=== PATIENT | male | born 1960 | race Caucasian/White ===

== ENCOUNTER 2016-10-04 02:59 | Observation (INO) | payer MEDICARE, OTHER ==
[2016-10-04] VITALS (13 sets, daily range): BP systolic 101–138; BP diastolic 66–82; PULSE 39–61; RESP 14–18; TEMP 97.5–97.8; O2SAT 93–100
[~2016-10-04] VITALS: Ht 170.2 cm; Wt 74.7 kg
[~2016-10-04 02:59] MED LIST: DEXT15TA PO; DIAZ10 PO; FENO50TA PO; LAMO150T PO; LEXA10TA PO; PREV30CA36 PO; SERO400T3 PO; SIMV40TA PO; TAMS0.4C67 PO
[2016-10-04] MEDS ORDERED: FENO134C PO (03:24)
[2016-10-04] MEDS ORDERED: CYCL1TAB29 PO (03:24)
[2016-10-04] MEDS ORDERED: PANT40TA3 PO (03:24)
[2016-10-04] MEDS ORDERED: ZOCO80TA PO (03:24)
[2016-10-04] MEDS ORDERED: LEVO50TA4 PO (03:24)
[2016-10-04] MEDS ORDERED: SODIUM CHLORIDE 0.9% FLUSH 10 ML FLUSH IVF PRN ×2 (03:45→05:30)
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
[2016-10-04 04:05] LABS: AUTOMATED NEUTROPHIL # 5.8 TH/MM3 (1.8-7.7); BASOPHIL # 0.2 TH/MM3 (0-0.2); BASOPHIL % 2.7 % (0.0-2.0); EOSINOPHIL # 0.1 TH/MM3 (0-0.4); EOSINOPHIL % 1.7 % (0.0-4.0); HEMATOCRIT 37.6 % (39.0-51.0); HEMO FLAGS DIFF FINAL; LYMPH % 19.8 % (9.0-44.0); LYMPHOCYTE # 1.6 TH/MM3 (1.0-4.8); MEAN CELL VOLUME 88.8 FL (80.0-100.0); MEAN CORPUSCULAR HEMOGLOBIN 29.1 PG (27.0-34.0); MEAN CORPUSCULAR HGB CONC 32.8 % (32.0-36.0); MONO % 6.2 % (0.0-8.0); NEUT % 69.6 % (16.0-70.0); PLATELET COUNT 262 TH/MM3 (150-450); RED BLOOD COUNT 4.24 MIL/MM3 (4.50-5.90); RED CELL DISTRIBUTION WIDTH 12.8 % (11.6-17.2); WHITE BLOOD COUNT 8.2 TH/MM3 (4.0-11.0)
--- NOTE | 2016-10-04 04:12 | RADRPT ---
EXAM DATE/TIME: 10/04/2016 03:52 [facility] COMPARISON: No previous studies available for comparison. INDICATIONS : Chest pain. MEDICAL HISTORY : Myocardial infarction. SURGICAL HISTORY : None. ENCOUNTER: Initial ACUITY: 1 day PAIN SCORE: 3/10 LOCATION: Bilateral chest FINDINGS: A single view of the chest demonstrates the lungs to be symmetrically aerated without evidence of mas s, infiltrate or effusion. The cardiomediastinal contours are unremarkable. Osseous structures are intact. CONCLUSION: The lungs are clear. Michael Mackay MD on October 04, 2016 at 4:10 Board Certified Radiologist. This report was verified electronically.
[2016-10-04 04:17] LABS: CHLORIDE 108 MEQ/L (98-107); SODIUM (NA) 144 MEQ/L (136-145)
[2016-10-04 04:20] LABS: ANION GAP 8 MEQ/L (5-15); BICARBONATE 27.7 MEQ/L (21.0-32.0); BLOOD UREA NITROGEN 26 MG/DL (7-18)
[2016-10-04 04:24] LABS: GLOMERULAR FILTRATION RATE 52 ML/MIN (>89)
[2016-10-04 04:27] LABS: CREATINE KINASE 144 U/L (39-308)
[2016-10-04] MEDS ORDERED: KETOROLAC TROMETHAMINE 30 MG/ML (IVP) VIAL IV PUSH ONE (04:30)
[2016-10-04] MEDS ORDERED: SODIUM CHLOR 0.9% 1000 ML INJ 1,000 ML IV ONE (04:30)
[2016-10-04 04:39] LABS: BLOOD, URINE NEG (NEG); GLUCOSE,URINE NEG (NEG); KETONE, URINE NEG (NEG); NITRITE,URINE NEG (NEG); PH, URINE 6.5 (5.0-8.5)
[2016-10-04 04:39] LABS: CKMB 2.4 NG/ML (0.5-3.6)
[2016-10-04 04:51] LABS: URINE COLOR STRAW (YELLW/STRAW)
[2016-10-04 04:55] LABS: COMMENT (UR) CULT NOT INDICATED; CULTURE IF INDICATED CULT NOT INDICATED; RBC, URINE 0-3 /hpf (0-3); SQUAMOUS EPITHELIAL CELL URINE 0-5 /hpf (0-5)
[2016-10-04 05:06] LABS: APTT (PATIENT) 25.4 SEC (24.3-30.1); PROTHROMBIN TIME - PATIENT 11.6 SEC (9.8-11.6)
[2016-10-04] MEDS ORDERED: MAGNESIUM HYDROXIDE SUSP 30 ML CUP PO PRN (05:30)
[2016-10-04] MEDS ORDERED: ONDANSETRON HCL 4 MG/2 ML VIAL IVP PRN (05:30)
[2016-10-04] MEDS ORDERED: LACTULOSE SYRUP 20 GM/30 ML CUP PO PRN (05:30)
[2016-10-04] MEDS ORDERED: SODIUM CHLORIDE 0.9% FLUSH 10 ML FLUSH IV FLUSH PRN (05:30)
[2016-10-04] MEDS ORDERED: ACETAMINOPHEN 325 MG TAB PO PRN ×2 (05:30)
[2016-10-04] MEDS ORDERED: SENNOSIDES 8.6 MG TAB PO PRN (05:30)
[2016-10-04] MEDS ORDERED: NALOXONE HCL 0.4 MG/ML AMP IV PRN (05:30)
[2016-10-04] MEDS ORDERED: HEPARIN SODIUM - SQ 10,000 UNITS/ML VIAL SQ SCH (05:30)
[2016-10-04] MEDS ORDERED: SODIUM CHLOR 0.9% 1000 ML INJ 1,000 ML IV SCH (05:30)
[2016-10-04 06:00] LABS: BARBITURATES, URINE NEG (NEG); COCAINE, URINE NEG (NEG)
[2016-10-04 06:01] LABS: AMPHETAMINE, URINE NEG (NEG)
[2016-10-04] MEDS ORDERED: FENT0.05 (06:07)
[2016-10-04] MEDS ORDERED: SODIUM CHLORIDE 0.9% FLUSH 10 ML FLUSH IV FLUSH SCH ×2 (09:00)
[2016-10-04] MEDS ORDERED: FENOFIBRATE 145 MG TAB PO SCH (10:45)
[2016-10-04] MEDS ORDERED: PANTOPRAZOLE SOD 40 MG DELAYED RELEASE TAB PO SCH (11:00)
[2016-10-04] MEDS ORDERED: PRAVASTATIN SOD 80 MG TAB PO SCH (11:00)
[2016-10-04] MEDS ORDERED: traMADol HCL 50 MG TAB PO PRN (11:30)
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
[2016-10-04] MEDS ORDERED: CYCLOBENZAPRINE HCL 10 MG TAB PO SCH (13:00)
--- NOTE | 2016-10-04 17:21 | EKG ---
Date Performed: 10/04/2016 Time Performed: 03:55:20 PTAGE: 56 years EKG: SINUS BRADYCARDIA BORDERLINE ECG PREVIOUS TRACING : 09/08/2010 21.59 Compared to prior tracing no significant change DOCTOR: Wild Hillaird Interpretating Date/Time 10/04/2016 17:19:42
--- NOTE | 2016-10-04 19:03 | MB ---
cc: SAV GAMBLE MD DATE OF CONSULTATION 10/04/16 I made a special care to the hospital to see Mr. Barajas in cardiology consultation. He had come in because of a lot of back pain. I went to the nursing station to look at telemetry and there was no tracing. Apparently, he was off telemetry and had walked off the floor and possibly out of the hospital. His whereabouts are completely unknown so we are unable to do a cardiology consultation. I discussed this with the staff. Sav Gamble MD ASG/ /2:12 PM /7:05 PM
[2016-10-05] MEDS ORDERED: LEVOTHYROXINE SODIUM 50 MCG TAB PO SCH (06:00)
== END 2016-10-04 14:21 | disposition left against medical advice (07) ==
LOC: PHED 02:59 → INTOOBSV 05:26 → PHEDA 05:26 → PH3B 08:51
PROVIDERS: ADMIT Family Medicine; ATTEND Family Medicine
DX: M54.5 Low back pain (principal); M54.2 Cervicalgia; G89.4 Chronic pain syndrome; R00.1 Bradycardia, unspecified; R07.9 Chest pain, unspecified; R53.1 Weakness; E83.52 Hypercalcemia; I25.2 Old myocardial infarction; E78.5 Hyperlipidemia, unspecified; E78.00 Pure hypercholesterolemia, unspecified; E03.9 Hypothyroidism, unspecified; K21.9 Gastro-esophageal reflux disease without esophagitis; F31.9 Bipolar disorder, unspecified; F41.8 Other specified anxiety disorders; M19.90 Unspecified osteoarthritis, unspecified site; Z87.891 Personal history of nicotine dependence; Z79.899 Other long term (current) drug therapy
CPT/HCPCS: 71010; 80048; 80307; 81001; 82550; 82552; 83735; 84443; 84484; 85025; 85610; 85730; 93005; 96361; 96374; 99291; G0378; J1644; J1885; J7030

== ENCOUNTER 2016-12-06 13:51 | Inpatient (IN) | payer MEDICARE ==
[~2016-12-06] VITALS: Ht 167.6 cm; Wt 68.5 kg
[~2016-12-06 13:51] MED LIST changes: +CYCL1TAB29 PO; -DEXT15TA PO; -DIAZ10 PO; +FENO134C PO; -FENO50TA PO; +FENT0.05; -LAMO150T PO; +LEVO50TA4 PO; -LEXA10TA PO; +PANT40TA3 PO; -PREV30CA36 PO; -SERO400T3 PO; -SIMV40TA PO; -TAMS0.4C67 PO; +ZOCO80TA PO
[2016-12-06] MEDS ORDERED: IOHEXOL 350 MG/ML 10 ML VIAL (for RAD DIAG) IVCONTRAST ONE (13:52)
[2016-12-06 13:57] VITALS: BP 155/75; PULSE 60; RESP 18; TEMP 98.8; O2SAT 98
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
[2016-12-06 14:45] LABS: AUTOMATED NEUTROPHIL # 2.9 TH/MM3 (1.8-7.7); BASOPHIL % 0.4 % (0.0-2.0); EOSINOPHIL # 0.1 TH/MM3 (0-0.4); EOSINOPHIL % 2.6 % (0.0-4.0); HEMATOCRIT 39.7 % (39.0-51.0); HEMO FLAGS DIFF FINAL; LYMPH % 21.8 % (9.0-44.0); MEAN CELL VOLUME 90.6 FL (80.0-100.0); MEAN CORPUSCULAR HEMOGLOBIN 28.8 PG (27.0-34.0); MEAN CORPUSCULAR HGB CONC 31.8 % (32.0-36.0); MONO % 9.5 % (0.0-8.0); NEUT % 65.7 % (16.0-70.0); PLATELET COUNT 454 TH/MM3 (150-450); RED BLOOD COUNT 4.38 MIL/MM3 (4.50-5.90); RED CELL DISTRIBUTION WIDTH 15.4 % (11.6-17.2); WHITE BLOOD COUNT 4.4 TH/MM3 (4.0-11.0)
[2016-12-06 15:02] LABS: ANION GAP 8 MEQ/L (5-15); AST (GOT) 33 U/L (15-37); BLOOD UREA NITROGEN 12 MG/DL (7-18); CHLORIDE 109 MEQ/L (98-107); GLOMERULAR FILTRATION RATE 76 ML/MIN (>89); POTASSIUM 4.2 MEQ/L (3.5-5.1); SODIUM (NA) 141 MEQ/L (136-145)
[2016-12-06 15:04] LABS: ALCOHOL LESS THAN 3 MG/DL (0-5)
[2016-12-06 15:05] LABS: ALKALINE PHOSPHATASE 72 U/L (45-117); ALT (GPT) 132 U/L (12-78); TOTAL BILIRUBIN ADULT 0.9 MG/DL (0.2-1.0)
[2016-12-06 15:12] LABS: ACETAMINOPHEN LESS THAN 2.0 MCG/ML (10.0-30.0)
[2016-12-06 16:00] VITALS: BP 128/70; PULSE 60; RESP 17; O2SAT 98
--- NOTE | 2016-12-06 16:26 | RADRPT ---
EXAM DATE/TIME: 12/06/2016 15:30 [facility] COMPARISON: No previous studies available for comparison. INDICATIONS : Attempted hanging. RADIATION DOSE: CTDIvol (mGy) ; Reconstructed from previous dataset, no dose MEDICAL HISTORY : Cardiovascular disease. SURGICAL HISTORY : None. ENCOUNTER: Initial ACUITY: 1 day PAIN SCALE: 0/10 LOCATION: neck TECHNIQUE: Volumetric scanning of the cervical spine was performed. Multiplanar reconstructions in the sagittal, coronal and oblique axial planes were performed. Using automated exposure control and adjustment o f the mA and/or kV according to patient size, radiation dose was kept as low as reasonably achievable to obtain optimal diagnostic quality images. DICOM format image data is available electronically f or review and comparison. FINDINGS: VERTEBRAE: There is an anterior fusion plate with intervening bone graft material involving C5-C6 and C6-C7. Randall tebral body heights are maintained. ALIGNMENT: No evidence of subluxation. Residual contrast from the CTA is present. C2-C3: The bony spinal canal is normal in size. No evidence of disc bulge or herniation. The neural forami na are bilaterally patent. C3-C4: The bony spinal canal is normal in size. No evidence of disc bulge or herniation. The neural forami na are bilaterally patent. C4-C5: There is a minimal central bulge. No abutment of the cord or central canal stenosis. Mild bony uncove rtebral hypertrophy generates mild right neural foraminal narrowing. The left is patent. C5-C6: This level is fused. Central canal is patent. Bony uncovertebral hypertrophy generates moderate right and mild left neural foraminal narrowing. C6-C7: This level is fused. The central canal is patent. Bony uncovertebral hypertrophy generates mild bilat eral neural foraminal narrowing. C7-T1: The bony spinal canal is normal in size. No evidence of disc bulge or herniation. The neural forami na are bilaterally patent. CONCLUSION: 1. Prior anterior fusion from C5-C7. 2. Mild degenerative changes. 3. No acute abnormality. Michael Monteiro Jr., MD on December 06, 2016 at 16:20 Board Certified Radiologist. This report was verified electronically.
--- NOTE | 2016-12-06 17:04 | RADRPT ---
EXAM DATE/TIME: 12/06/2016 15:30 [facility] COMPARISON: No previous studies available for comparison. INDICATIONS : Attempted hanging. IV CONTRAST: 70 cc Omnipaque 350 (iohexol) IV RADIATION DOSE: 16.0 CTDIvol (mGy) MEDICAL HISTORY : Cardiovascular disease. SURGICAL HISTORY : None. ENCOUNTER: Initial ACUITY: 1 day PAIN SCALE: 0/10 LOCATION: neck Elevated flow velocities and ICA/CCA ratios have been found to correlate with increased degrees of vessel stenosis, calculated as percentage of diameter relative to a normal segment of distal ICA/CCA. TECHNIQUE: Volumetric scanning was performed using a multirow detector CT scanner. The data was post processed with a variety of visualization algorithms including full-volume maximum intensity projection, multip lanar sliding thin-slab reformation, curved-planar reformation, and surface-rendering techniques. Us ing automated exposure control and adjustment of the mA and/or kV according to patient size, radiatio n dose was kept as low as reasonably achievable to obtain optimal diagnostic quality images. DICOM f ormat image data is available electronically for review and comparison. FINDINGS: AORTIC ARCH: There is a three-vessel origin of the great vessels from the aorta. No evidence of ostial narrowing. RIGHT CAROTID: The common carotid artery is intact. The carotid bulb has a normal configuration without ulceration o r narrowing. The internal carotid artery lumen is smooth without stenosis. The external carotid shane ry is intact. LEFT CAROTID: The common carotid artery is intact. The carotid bulb has a normal configuration without ulceration or narrowing. The internal carotid artery lumen is smooth without stenosis. The external carotid ar rishabh is intact. VERTEBRALS: Vertebral arteries are patent bilaterally, right side dominant. No evidence of disease or injury. CONCLUSION: Normal study Tony Lantigua MD on December 06, 2016 at 16:56 Board Certified Radiologist. This report was verified electronically.
[2016-12-06 18:00] VITALS: BP 138/80; PULSE 61; RESP 16; O2SAT 97
[2016-12-06] MEDS ORDERED: TYLETAB34 PO (20:25)
[2016-12-06] MEDS ORDERED: ALUMINUM/MAGNESIUM/SIMETH 30 ML CUP PO PRN (21:00)
[2016-12-06] MEDS ORDERED: LORazepam 2 MG TAB PO PRN (21:00)
[2016-12-06] MEDS ORDERED: LORazepam 2 MG/ML VIAL IV PUSH PRN ×4 (21:00)
[2016-12-06] MEDS ORDERED: BENZTROPINE MESYLATE 1 MG TAB PO PRN (21:00)
[2016-12-06] MEDS ORDERED: MAGNESIUM HYDROXIDE SUSP 30 ML CUP PO PRN (21:00)
[2016-12-06] MEDS ORDERED: BENZTROPINE MESYLATE 2 MG/2 ML VIAL IM PRN (21:00)
[2016-12-06] MEDS ORDERED: FLUMAZENIL 0.5 MG/5 ML VIAL IV PUSH PRN (21:00)
[2016-12-06] MEDS: LORazepam 1 MG TAB PO PRN (22:29)
[2016-12-06 23:40] VITALS: BP 131/86; PULSE 65; RESP 20; TEMP 98.2; O2SAT 100
[2016-12-07] MEDS: LEVOTHYROXINE SODIUM 50 MCG TAB PO SCH (05:51)
[2016-12-07] MEDS: hydrOXYzine HCL 50 MG TAB PO PRN ×2 (05:55→20:44)
[2016-12-07] MEDS: ACETAMINOPHEN 325 MG TAB PO PRN ×4 (05:55→21:52)
[2016-12-07] MEDS: PRAVASTATIN SOD 80 MG TAB PO SCH (08:48)
[2016-12-07] MEDS: PANTOPRAZOLE SOD 40 MG DELAYED RELEASE TAB PO SCH (08:48)
[2016-12-07] MEDS: REMOVE OLD PATCH T-DERMAL SCH (09:00)
[2016-12-07] MEDS: NICOTINE 21 MG/24 HR PATCH T-DERMAL SCH (09:00)
[2016-12-07 10:27] LABS: ANION GAP 10 MEQ/L (5-15); AST (GOT) 22 U/L (15-37); BLOOD UREA NITROGEN 16 MG/DL (7-18); CHLORIDE 106 MEQ/L (98-107); GLOMERULAR FILTRATION RATE 76 ML/MIN (>89); POTASSIUM 3.7 MEQ/L (3.5-5.1); SODIUM (NA) 141 MEQ/L (136-145)
[2016-12-07 10:28] LABS: ALT (GPT) 124 U/L (12-78)
[2016-12-07 10:30] LABS: AUTOMATED NEUTROPHIL # 4.2 TH/MM3 (1.8-7.7); BASOPHIL % 0.2 % (0.0-2.0); EOSINOPHIL # 0.1 TH/MM3 (0-0.4); EOSINOPHIL % 0.8 % (0.0-4.0); HEMATOCRIT 39.3 % (39.0-51.0); HEMO FLAGS DIFF FINAL; LYMPH % 26.2 % (9.0-44.0); LYMPHOCYTE # 1.8 TH/MM3 (1.0-4.8); MEAN CELL VOLUME 89.6 FL (80.0-100.0); MEAN CORPUSCULAR HEMOGLOBIN 29.6 PG (27.0-34.0); MONO % 9.8 % (0.0-8.0); PLATELET COUNT 480 TH/MM3 (150-450); RED BLOOD COUNT 4.38 MIL/MM3 (4.50-5.90); RED CELL DISTRIBUTION WIDTH 15.3 % (11.6-17.2); WHITE BLOOD COUNT 6.7 TH/MM3 (4.0-11.0)
[2016-12-07 10:37] LABS: ALKALINE PHOSPHATASE 77 U/L (45-117); HDL CHOLESTEROL 63.3 MG/DL (40.0-60.0); LDL CHOLESTEROL 69 MG/DL (0-99)
--- NOTE | 2016-12-07 10:57 | HHI.HP ---
Provisional Diagnosis Admission Date Dec 06, 2016 at 20:47 [place] I. 1. Bipolar affective disorder, presently depressed, severe without psychotic features Rule out contribution from substance use 2. Suspected polysubstance abuse [place] II. Deferred Certification of Person's Competence To Provide Express and Informed Consent I have personally examined Vicki Barajas , a person being served at [facility] on, Dec 07, 2016 10:57. Express and informed consent means consent voluntarily given in writing, by a competent person, after sufficient explanation and disclosure of the subject matter involved to enable the person to make a knowing and willful decision without any element of force, fraud, deceit, duress, or other form of constraint or coercion. This person is 18 years of age or older, is not now known to be incompetent to consent to treatment with a guardian advocate, and does not have a health care surrogate or proxy currently making medical treatment decisions. I have found this person to be one of the following: [] Competent to provide express and informed consent, as defined above, for voluntary admission to this facility and is competent to provide express and informed consent for treatment. He/she has the consistent capacity to make well reasoned, willful, and knowing decisions concerning his or her medical or mental health treatment. The person fully and consistently understands the purpose of the admission for examination/placement and is fully capable of personally exercising all rights assured [place] [] Incompetent to provide express and informed consent to voluntary admission, and this is incompetent to provide express and informed consent to treatment. The person must be transferred to involuntary status and a petition for a guardian advocate filed with the Circuit Court. [x] Refusing to provide express and informed consent to voluntary admission but is competent to provide express and informed consent for treatment. The person must be discharged or transferred to involuntary status. Form shall be completed within 24 hours of a person's arrival at the receiving facility and filed in the clinical record of each person: 1. Admitted on a voluntary basis 2. Permitted to provide express and informed consent to his/her own treatment 3. Allowed to transfer from involuntary to voluntary status 4. Prior to permitting a person to consent to his or her own treatment after having been previously found incompetent to consent to treatment. History of Present Illness Capacity: Has Capacity (to consent for medications at this time.) HPI Mr. Barajas is a 56-year-old male with a chart history of bipolar disorder who presents under a [place] act after an attempted hanging. Per the ED provider's note, the patient was found hanging by EMS with foam coming from his mouth. Urine toxicology suggests use of multiple substances including opiates, amphetamines, benzos and cannabinoids. Reviewing the electronic medical record , I note that the patient was admitted most recently here under Dr. Andrade in 2005 , at which time he was apparently on Seroquel. Patient seen and examined with nurse. Chart reviewed. Case discussed with nursing staff. On my examination today, the patient presents as extremely irritable and dysphoric. He says that he tried to hang himself because he and his weren't getting along. When I ask about ongoing SI, the patient tells me that he has been experiencing chronic back pain for 7 years, and he does admit to ongoing SI, although he denies desire to hurt himself on the inpatient psychiatric unit. He denies homicidal ideation. He denies audiovisual hallucinations. No delusions elicited. Sleep is fair but appetite is poor. Focus and concentration are poor. He seems quite fatigued. He tells me "I want out as soon as I can, and I am prepared to fight for that," by which he means he will retain an real estate attorney. I have discussed legal status and [place] [address] with him. He is fairly uncooperative historian generally. Past psychiatric history: Patient has a chart history of bipolar disorder. The patient declines to discuss his psychiatric history otherwise, although he does admit to a history of previous suicide attempt by trying to cut his wrists. Review of Systems ROS Limitations: Uncooperative, Poor Historian Except as stated in HPI: all other systems reviewed are Neg Past Psych History Psychological trauma history None reported Violence risk - others (6 mos) Indeterminate Violence risk - self (6 mos) Elevated risk. S/p serious SA. Substance Abuse History Drugs/Alcohol past 12 months Patient denies any abuse of drugs or alcohol although his urine toxicology is positive for substances as detailed above. Past Family Social History Coded Allergies: No Known Allergies (Unverified , 12/06/16) Past Medical History See electronic medical record Reported Medications Acetaminophen-Codeine (Tylenol-Codeine #3) 300-30 mg Tab, 1 TAB PO Q6HR Y for PAIN, TAB 0 Refills 12/06/16 Pantoprazole (Pantoprazole) 40 Mg Tab, 40 MG PO DAILY for Reflux, #30 TAB 0 Refills 10/04/16 Simvastatin (Zocor) 80 Mg Tab, 80 MG PO DAILY for Cholesterol Management, #30 TAB 0 Refills 10/04/16 Levothyroxine (Levothyroxine) 50 Mcg Tab, 50 MCG PO DAILY for Thyroid, #30 TAB 0 Refills 10/04/16 Discontinued Reported Medications Fentanyl Inj (Fentanyl Inj) 100 Mcg/2 Ml Amp, 50 MCG for Pain Management, AMPULE 0 Refills 10/04/16 Cyclobenzaprine (Flexeril) 10 Mg Tab, 10 MG PO TID for Muscle Spasm, #90 TAB 0 Refills 10/04/16 Fenofibrate Micronized (Fenofibrate Micronized) 134 Mg Cap, 134 MG PO DAILY, # 30 CAP 0 Refills 10/04/16 Current Medications Medications (Trade) Dose Ordered Sig/Elana Route Start Time Stop Time Status Last Admin (Benadryl) 50 mg HS PRN PO 12/06/16 21:00 (Tylenol) 650 mg Q4H PRN PO 12/06/16 21:00 12/07/16 08:51 (Milk Of Magnesia Liq) 30 ml DAILY PRN PO 12/06/16 21:00 (Mag-Al Plus Susp Liq) 30 ml Q6H PRN PO 12/06/16 21:00 (Habitrol 21 Mg Patch.24 Hr) 1 patch DAILY T-DERMAL 12/07/16 09:00 (Atarax) 50 mg Q6H PRN PO 12/06/16 21:00 12/07/16 05:55 (Cogentin) 1 mg Q12H PRN PO 12/06/16 21:00 (Cogentin Inj) 1 mg Q12H PRN IM 12/06/16 21:00 (Romazicon Inj) 0.2 mg Q1M PRN IV PUSH 12/06/16 21:00 (Ativan) 1 mg Q4H PRN PO 12/06/16 21:00 12/06/16 22:29 (Ativan Inj) 1 mg Q4H PRN IV PUSH 12/06/16 21:00 (Ativan) 2 mg Q2H PRN PO 12/06/16 21:00 (Ativan Inj) 2 mg Q2H PRN IV PUSH 12/06/16 21:00 (Ativan Inj) 2 mg Q1H PRN IV PUSH 12/06/16 21:00 (Ativan Inj) 2 mg Q15M PRN IV PUSH 12/06/16 21:00 Miscellaneous Information 1 DAILY T-DERMAL 12/07/16 09:00 (Synthroid) 50 mcg DAILY@0600 PO 12/07/16 06:00 12/07/16 05:51 (Protonix) 40 mg DAILY PO 12/07/16 09:00 12/07/16 08:48 (Pravachol) 80 mg DAILY PO 12/07/16 09:00 12/07/16 08:48 Family History Patient reports that his sister has bipolar disorder. Social History Patient has been 20 years. He has 3 adult children. He denies access to guns. He is high school educated. He is on disability. Denies any history. Denies any legal history. Endorses oriental orthodox/spiritual beliefs. Patient's Strengths (min. 2) In a monitored setting. Verbally fluent. Physical Exam Physical exam completed by ED provider. On my examination today, the patient appears to be in no acute physical distress. No motor abnormalities noted. No signs of GABAergic withdrawal appreciated. Labs and vitals reviewed: Vital Signs Vital Signs Date Time Temp Pulse Resp B/P (MAP) Pulse Ox O2 Delivery O2 Flow Rate FiO2 12/06/16 23:40 98.2 65 20 131/86 (101) 100 12/06/16 18:00 Room Air Lab Results Item Value Date Time White Blood Count 6.7 TH/MM3 # 12/07/16 0855 Hemoglobin 13.0 GM/DL 12/07/16 0855 Platelet Count 480 TH/MM3 H 12/07/16 0855 Sodium Level 141 MEQ/L 12/07/16 0855 Potassium Level 3.7 MEQ/L 12/07/16 0855 Chloride Level 106 MEQ/L 12/07/16 0855 Carbon Dioxide Level 25.0 MEQ/L 12/07/16 0855 Blood Urea Nitrogen 16 MG/DL 12/07/16 0855 Creatinine 1.02 MG/DL 12/07/16 0855 Aspartate Amino Transf (AST/SGOT) 22 U/L 12/07/16 0855 Alanine Aminotransferase (ALT/SGPT) 124 U/L H 12/07/16 0855 Alkaline Phosphatase 77 U/L 12/07/16 0855 Thyroid Stimulating Hormone 3rd Gen 0.276 uIU/ML L 12/07/16 0855 Urine Opiates Screen POS H 12/06/16 1455 Urine Amphetamines Screen POS H 12/06/16 1455 Urine Benzodiazepines Screen POS H 12/06/16 1455 Urine Cannabinoids Screen POS H 12/06/16 1455 Ethyl Alcohol Level LESS THAN 3 MG/DL 12/06/16 1415 Mental Status Examination Patient is in hospital gown. He is somewhat disheveled. He is awake and alert and oriented to person and hospital at least. No motor abnormalities noted. Speech is somewhat slow with increased speech latency. Language and fund of knowledge seem approximately average. Focus and concentration impaired. Memory seems at least fair on clinical exam. Mood is dysphoric and affect is restricted and irritable. Thought process slowed but linear. No loosening of associations. No delusions. Denies audiovisual hallucinations. Endorses ongoing suicidal ideation but denies plan. Denies homicidal ideation. Patient is presently unreliable to contract for safety. Insight and judgment are poor. Assessment & Plan Problem List: (1) Bipolar disorder ICD Codes: F31.9 - Bipolar disorder, unspecified Status: Acute (2) Polysubstance abuse ICD Codes: F19.10 - Other psychoactive substance abuse, uncomplicated Status: Chronic Assessment & Plan This is a 56-year-old male with psychiatric history as detailed above who presents under a [place] act following an attempted hanging. Patient presents to me as quite dysphoric and endorses ongoing suicidal ideation. I suspected bipolar depressive episode, although some component of drug induced mood disorder should also be kept in the differential. Patient requires psychiatric hospitalization at this time for safety, observation and stabilization. Admit inpatient. Patient is declining voluntary psychiatric hospitalization. Involuntary status. I have completed first opinion. Consult for second opinion. Patient retains capacity to consent for medications. Consult to the hospitalist for medical management including low TSH, chronic pain. Resume Seroquel 50 mg twice daily with plans to titrate to effect for mood. CIWA with Ativan for the management of any withdrawal. Seizure and fall precautions. Atarax as needed for anxiety, Cogentin as needed for EPS, Benadryl as needed for sleep. Vitals every shift. Counselor to see and obtain collateral. Disposition planning. Estimated length of stay: 7-9 days unless episode proves to be chiefly substance-induced. Discharge Planning Pending stabilization Request HC Surrog/Guard Advoc?: No Problem Qualifiers (1) Bipolar disorder: Qualified Codes: F31.4 - Bipolar disorder, current episode depressed, severe, without psychotic features Woody Lazo MD Dec 07, 2016 10:57
[2016-12-07 11:12] LABS: HEMOGLOBIN A1a 1.1 %; HEMOGLOBIN A1b 0.8 %; HEMOGLOBIN Ao 86.1 %; HEMOGLOBIN F 0.7 %; HEMOGLOBIN LA1C 1.9 %; HEMOGLOBIN P3 3.6 %
[2016-12-07 16:02] VITALS: BP 160/83; PULSE 69; RESP 18; TEMP 95.9; O2SAT 97
[2016-12-07] MEDS ORDERED: FENO134C PO (19:37)
[2016-12-07] MEDS ORDERED: GABA300C5 PO (19:39)
[2016-12-07] MEDS ORDERED: amphetamine salts PO (19:43)
[2016-12-07] MEDS ORDERED: SERO400T PO (19:44)
[2016-12-07] MEDS ORDERED: LAMO200T PO (19:45)
[2016-12-07] MEDS ORDERED: FENT0.05 IJ (19:48)
[2016-12-07] MEDS: QUEtiapine FUMARATE 25 MG TAB PO SCH (20:45)
[2016-12-07] MEDS: diphenhydrAMINE HCL 50 MG CAP PO PRN (21:53)
[2016-12-08] MEDS: LORazepam 1 MG TAB PO PRN (00:57)
[2016-12-08 05:45] VITALS: BP 139/94; PULSE 67; RESP 18; TEMP 98.6; O2SAT 99
[2016-12-08] MEDS: LEVOTHYROXINE SODIUM 50 MCG TAB PO SCH (06:00)
--- NOTE | 2016-12-08 08:23 | PD.PSY.CON ---
Provisional Diagnosis Admission Date Dec 06, 2016 at 20:47 [place] I. 1. Bipolar affective disorder, presently depressed, severe without psychotic features Rule out contribution from substance use 2. Suspected polysubstance abuse [place] II. Deferred History of Present Illness Service Psychiatry Consult Requested By Dr. lazo Reason for Consult Second opinion petition supporting [place] act Primary Care Physician Unknown HPI Mr. Barajas is a 56-year-old male with a chart history of bipolar disorder who presents under a [place] act after an attempted hanging. Per the ED provider's note, the patient was found hanging by EMS with foam coming from his mouth. Urine toxicology suggests use of multiple substances including opiates, amphetamines, benzos and cannabinoids. Reviewing the electronic medical record , I note that the patient was admitted most recently here under Dr. Andrade in 2005 , at which time he was apparently on Seroquel. Patient seen and examined with nurse. Chart reviewed. Case discussed with nursing staff. On my examination today, the patient presents as extremely irritable and dysphoric. He says that he tried to hang himself because he and his weren't getting along. When I ask about ongoing SI, the patient tells me that he has been experiencing chronic back pain for 7 years, and he does admit to ongoing SI, although he denies desire to hurt himself on the inpatient psychiatric unit. He denies homicidal ideation. He denies audiovisual hallucinations. No delusions elicited. Sleep is fair but appetite is poor. Focus and concentration are poor. He seems quite fatigued. He tells me "I want out as soon as I can, and I am prepared to fight for that," by which he means he will retain an corporate associate attorney. I have discussed legal status and [place] [address] with him. He is fairly uncooperative historian generally. Past psychiatric history: Patient has a chart history of bipolar disorder. The patient declines to discuss his psychiatric history otherwise, although he does admit to a history of previous suicide attempt by trying to cut his wrists. 11/28/16 Above note dictated by Dr. lazo reviewed and agreed with. Patient is 56- year-old white male admitted to his service. Patient seen by me with floor staff. Patient attempted hanging and suicide attempt. Is also significant chronic pain issues patient does still marked minimization of the suicide attempt states he also has the suicide with the past [address] aLzo insight first opinion petition supporting [place] act. I agree. Patient meets criteria for involuntary psychiatric hospitalization under the [place] act. Thus I will sign second opinion petition supporting [place] act Past Family Social History Coded Allergies: No Known Allergies (Unverified , 12/06/16) Reported Medications Fentanyl Inj (Fentanyl Inj) 100 Mcg/2 Ml Amp, 100 MCG IJ DAILY for Pain Management, AMPULE 0 Refills 12/07/16 Lamotrigine (Lamotrigine) 200 Mg Tab, 200 MG PO DAILY for Control Seizures, #30 TAB 0 Refills 12/07/16 Quetiapine (Seroquel) 400 Mg Tab, 400 MG PO HS, #30 TAB 0 Refills 12/07/16 [amphetamine salts] No Conflict Check, 15 MG PO BID 12/07/16 Gabapentin (Gabapentin) 300 Mg Cap, 300 MG PO TID, #90 CAP 0 Refills 12/07/16 Fenofibrate Micronized (Fenofibrate Micronized) 134 Mg Cap, 145 MG PO DAILY, # 30 CAP 0 Refills 12/07/16 Acetaminophen-Codeine (Tylenol-Codeine #3) 300-30 mg Tab, 1 TAB PO Q6HR Y for PAIN, TAB 0 Refills 12/06/16 Pantoprazole (Pantoprazole) 40 Mg Tab, 40 MG PO DAILY for Reflux, #30 TAB 0 Refills 10/04/16 Simvastatin (Zocor) 80 Mg Tab, 80 MG PO DAILY for Cholesterol Management, #30 TAB 0 Refills 10/04/16 Levothyroxine (Levothyroxine) 50 Mcg Tab, 50 MCG PO DAILY for Thyroid, #30 TAB 0 Refills 10/04/16 Discontinued Reported Medications Cyclobenzaprine (Flexeril) 10 Mg Tab, 10 MG PO TID for Muscle Spasm, #90 TAB 0 Refills 10/04/16 Current Medications Medications (Trade) Dose Ordered Sig/Elana Route Start Time Stop Time Status Last Admin (Benadryl) 50 mg HS PRN PO 12/06/16 21:00 12/07/16 21:53 (Tylenol) 650 mg Q4H PRN PO 12/06/16 21:00 12/07/16 21:52 (Milk Of Magnesia Liq) 30 ml DAILY PRN PO 12/06/16 21:00 (Mag-Al Plus Susp Liq) 30 ml Q6H PRN PO 12/06/16 21:00 (Habitrol 21 Mg Patch.24 Hr) 1 patch DAILY T-DERMAL 12/07/16 09:00 (Atarax) 50 mg Q6H PRN PO 12/06/16 21:00 12/07/16 20:44 (Cogentin) 1 mg Q12H PRN PO 12/06/16 21:00 (Cogentin Inj) 1 mg Q12H PRN IM 12/06/16 21:00 (Romazicon Inj) 0.2 mg Q1M PRN IV PUSH 12/06/16 21:00 (Ativan) 1 mg Q4H PRN PO 12/06/16 21:00 12/08/16 00:57 (Ativan Inj) 1 mg Q4H PRN IV PUSH 12/06/16 21:00 (Ativan) 2 mg Q2H PRN PO 12/06/16 21:00 (Ativan Inj) 2 mg Q2H PRN IV PUSH 12/06/16 21:00 (Ativan Inj) 2 mg Q1H PRN IV PUSH 12/06/16 21:00 (Ativan Inj) 2 mg Q15M PRN IV PUSH 12/06/16 21:00 Miscellaneous Information 1 DAILY T-DERMAL 12/07/16 09:00 (Synthroid) 50 mcg DAILY@0600 PO 12/07/16 06:00 12/08/16 06:00 (Protonix) 40 mg DAILY PO 12/07/16 09:00 12/07/16 08:48 (Pravachol) 80 mg DAILY PO 12/07/16 09:00 12/07/16 08:48 (SEROquel) 50 mg BID PO 12/07/16 21:00 12/07/16 20:45 Patient's Strengths (min. 2) In a monitored setting. Verbally fluent. Physical Exam Vital Signs Vital Signs Date Time Temp Pulse Resp B/P (MAP) Pulse Ox O2 Delivery O2 Flow Rate FiO2 12/08/16 05:45 98.6 67 18 139/94 (109) 99 12/06/16 18:00 Room Air Lab Results Test 12/07/16 08:55 White Blood Count 6.7 TH/MM3 Red Blood Count 4.38 MIL/MM3 Hemoglobin 13.0 GM/DL Hematocrit 39.3 % Mean Corpuscular Volume 89.6 FL Mean Corpuscular Hemoglobin 29.6 PG Mean Corpuscular Hemoglobin Concent 33.0 % Red Cell Distribution Width 15.3 % Platelet Count 480 TH/MM3 Mean Platelet Volume 8.3 FL Neutrophils (%) (Auto) 63.0 % Lymphocytes (%) (Auto) 26.2 % Monocytes (%) (Auto) 9.8 % Eosinophils (%) (Auto) 0.8 % Basophils (%) (Auto) 0.2 % Neutrophils # (Auto) 4.2 TH/MM3 Lymphocytes # (Auto) 1.8 TH/MM3 Monocytes # (Auto) 0.7 TH/MM3 Eosinophils # (Auto) 0.1 TH/MM3 Basophils # (Auto) 0.0 TH/MM3 CBC Comment DIFF FINAL Differential Comment Blood Urea Nitrogen 16 MG/DL Creatinine 1.02 MG/DL Random Glucose 96 MG/DL Total Protein 7.7 GM/DL Albumin 3.9 GM/DL Calcium Level 9.4 MG/DL Alkaline Phosphatase 77 U/L Aspartate Amino Transf (AST/SGOT) 22 U/L Alanine Aminotransferase (ALT/SGPT) 124 U/L Total Bilirubin 1.0 MG/DL Sodium Level 141 MEQ/L Potassium Level 3.7 MEQ/L Chloride Level 106 MEQ/L Carbon Dioxide Level 25.0 MEQ/L Anion Gap 10 MEQ/L Estimat Glomerular Filtration Rate 76 ML/MIN Hemoglobin A1c 5.3 % Triglycerides Level 88 MG/DL Cholesterol Level 150 MG/DL LDL Cholesterol 69 MG/DL HDL Cholesterol 63.3 MG/DL Cholesterol/HDL Ratio 2.36 RATIO Thyroid Stimulating Hormone 3rd Gen 0.276 uIU/ML Mental Status Examination Letter to thin slender somewhat disheveled white male calm cooperative somewhat guarded Appearance Somewhat disheveled Speech: Unremarkable Orientation: x3 Memory: Unremarkable Thought Process: Linear Thought Content: Unremarkable Language Fair Fund of Knowledge There Hallucination Type: None (denies) Attention and Concentration: Other (fair) Suicidal Ideation: Yes Previous Suicide Attempts: Yes Homicidal Ideation: No Previous Homicide Attempts: No Insight: Poor Judgment: Poor Affect: Other (decreased range and intensity) Mood: Sad, Other (restricted) Motor Activity: Normal gait Assessment & Plan Problem List: (1) Bipolar disorder ICD Codes: F31.9 - Bipolar disorder, unspecified Status: Acute (2) Polysubstance abuse ICD Codes: F19.10 - Other psychoactive substance abuse, uncomplicated Status: Chronic Assessment & Plan Estimated LOS: days Request HC Surrog/Guard Advoc?: No Problem Qualifiers (1) Bipolar disorder: Qualified Codes: F31.4 - Bipolar disorder, current episode depressed, severe, without psychotic features Tony Londono MD Dec 08, 2016 08:23
[2016-12-08] MEDS: QUEtiapine FUMARATE 25 MG TAB PO SCH (08:26)
[2016-12-08] MEDS: PRAVASTATIN SOD 80 MG TAB PO SCH (08:26)
[2016-12-08] MEDS: PANTOPRAZOLE SOD 40 MG DELAYED RELEASE TAB PO SCH (08:28)
[2016-12-08] MEDS: NICOTINE 21 MG/24 HR PATCH T-DERMAL SCH (08:29)
[2016-12-08] MEDS: REMOVE OLD PATCH T-DERMAL SCH (08:29)
--- NOTE | 2016-12-08 10:52 | HHI.PYPN ---
Subjective Remarks Patient seen and examined with nurse. Chart reviewed. E-FORCSE report reviewed. Extensive multisourcing noted. Case discussed with nursing staff. Per RN, patient incontinent of feces this morning. Patient tells me he has been having issues with fecal incontinence for several weeks. He is more conversant today and reiterates to me that he has been experiencing chronic back pain and difficulties with his , and this is why he tried to hang himself. He says he had been off his psychotropics for 3 weeks because "I didn' t think I would need them." We have obtained a med list, and I note patient had been on Lamictal and Seroquel. Mood "ashamed" of suicide attempt. Denies SI. Very discharge focused. Collateral obtained by counselor from patient's reviewed. No side effects. No other physical complaints. Review of Systems ROS Limitations: Poor Historian Except as stated in HPI: all other systems reviewed are Neg Objective Alert: Yes [place]: Person, Place, Date Mood: Other (Dysphoric) Affect: Restricted Memory Intact: Comment (fair) Hallucinations: Other (No AVH) Delusions: No Delusion Type: Other (No delusions) Suicidal: Ideation (Denies SI) Homicidal: Ideation (No HI) Insight/Judgment Poor Remarks No motor abnormalities noted. No signs of GABAergic withdrawal. Thought process linear. Grooming and hygiene poor. Speech somewhat slow with increased speech latency. Labs Labs reviewed. Vitals/IOs Vital Signs Date Time Temp Pulse Resp B/P (MAP) Pulse Ox O2 Delivery O2 Flow Rate FiO2 12/08/16 05:45 98.6 67 18 139/94 (109) 99 12/06/16 18:00 Room Air Assessment & Plan Problem List: (1) Bipolar disorder ICD Codes: F31.9 - Bipolar disorder, unspecified Status: Acute (2) Polysubstance abuse ICD Codes: F19.10 - Other psychoactive substance abuse, uncomplicated Status: Chronic Assessment & Plan E-FORCSE report raises red flag for significant substance use disorder, which would itself represent risk factor for ongoing self-harm. Home medication list included Seroquel 400mg qHS and Lamictal 200mg. Patient does not recall the Lamictal having been particularly helpful but would like to continue with Seroquel. I will adjust Seroquel somewhat lower than home dose given the period of medication nonadherence to avoid excessive sedation. Seroquel 50 mg daily and 200 mg at bedtime. Awaiting hospitalist input, and I have asked RN to apprise hospitalist of the fecal incontinence when hospitalist rounds. I have called the [facility] to ensure the consult went through, and it has. Continue to monitor on the inpatient unit. Continue other medications and care as ordered. Justification for Cont. Inpt. Monitoring for impairments in safety. High risk for decompensation and less restrictive environment. Discharge Planning Pending psychiatric stabilization Request HC Surrog/Guard Advoc?: No Problem Qualifiers (1) Bipolar disorder: Qualified Codes: F31.4 - Bipolar disorder, current episode depressed, severe, without psychotic features Woody Lazo MD Dec 08, 2016 10:52
[2016-12-08] MEDS: GABAPENTIN 300 MG CAP PO SCH ×2 (12:06→18:01)
[2016-12-08 16:31] VITALS: BP 148/94; PULSE 77; RESP 17; TEMP 98.9; O2SAT 98
--- NOTE | 2016-12-08 17:53 | HHI.PR ---
Objective Objective Results - Vital Signs Date Time Temp Pulse Resp B/P (MAP) Pulse Ox O2 Delivery O2 Flow Rate FiO2 12/08/16 16:31 98.9 77 17 148/94 (112) 98 12/08/16 05:45 98.6 67 18 139/94 (109) 99 Result Diagram: 12/07/16 0855 12/07/16 0855 Physical Exam Physical Exam pt is seen & examined d/w PT d/w Kacey see orders see consult thanks Nickolas Zendejas MD Dec 08, 2016 17:53
--- NOTE | 2016-12-08 18:01 | PD.CONS ---
HPI Service [facility] Hospitalists Consult Requested By Dr. Anderson Reason for Consult Medical management Primary Care Physician Unknown Diagnoses: History of Present Illness This is a 56-year-old white male with significant past medical history of chronic back and neck pain, previous cervical surgery, bipolar disorder, polysubstance abuse. Patient was brought in under a [place] act after an attempted hanging. Per ED and [place] act documentation, the patient was found hanging by EMS with foam coming from his mouth. Urine toxicology suggested multiple substances including opiates, amphetamines, benzos and cannabinoids. Patient has been admitted to the psychiatric unit, he is complaining of increasing pain and is very upset about his pain medications. He endorses recent C5 C6 C7 surgery in [place] with anterior approach, he thinks he may be 2 -3 months ago. He has a fentanyl pump that is almost empty and follows up with an outpatient pain management physician that he is not going to see anymore. Apparently the last narcotics he was taking was Tylenol 3. Prior to that he was on oxycodone. Dr Anderson conducted a search on [employer] and there is extensive multisourcing. Patient also had 2 episodes of incontinence of stool which indicates has happened in the past. Indicates he has occasional constipation because of the narcotics. He denies any bladder incontinence. No recent chest pain, shortness of breath, no fever, no chills. Laboratory workup is reviewed, he's noted with a depressed TSH. Cervical and neck CT are stable, no fracture. There is evidence of previous surgery. Hospitalist services are requested for medical management. Review of Systems Constitutional: DENIES: Diaphoretic episodes, Fatigue, Fever, Weight gain, Weight loss, Chills, Dizziness, Change in appetite, Night Sweats Endocrine: DENIES: Heat/cold intolerance, Polydipsia, Polyuria, Polyphagia Eyes: DENIES: Blurred vision, Diplopia, Eye inflammation, Eye pain, Vision loss , Photosensitivity, Double Vision Ears, nose, mouth, throat: DENIES: Tinnitus, Hearing loss, Vertigo, Nasal discharge, Oral lesions, Throat pain, Hoarseness, Ear Pain, Running Nose, Epistaxis, Sinus Pain, Toothache, Odynophagia Respiratory: DENIES: Apneas, Cough, Snoring, Wheezing, Hemoptysis, Sputum production, Shortness of breath Cardiovascular: DENIES: Chest pain, Palpitations, Syncope, Dyspnea on Exertion , PND, Lower Extremity Edema, Orthopnea, Claudication Gastrointestinal: COMPLAINS OF: Constipation, DENIES: Abdominal pain, Black stools, Bloody stools, Diarrhea, Nausea, Vomiting, Difficulty Swallowing, Anorexia Genitourinary: DENIES: Sexual dysfunction, Urinary frequency, Urinary incontinence, Urgency, Hematuria, Dysuria, Nocturia, Penile Discharge, Testicular Pain, Testicular Swelling Musculoskeletal: COMPLAINS OF: Back pain, Neck pain Integumentary: DENIES: Abnormal pigmentation, Nail changes, Pruritus, Rash Hematologic/lymphatic: DENIES: Bruising, Lymphadenopathy Immunologic/allergic: DENIES: Eczema, Urticaria Neurologic: DENIES: Abnormal gait, Headache, Localized weakness, Paresthesias, Seizures, Speech Problems, Tremor, Poor Balance Psychiatric: COMPLAINS OF: Anxiety, DENIES: Confusion, Mood changes, Depression , Hallucinations, Agitation, Suicidal Ideation, Homicidal Ideation, Delusions Other Has occasional episodes of fecal incontinence. Past Family Social History Past Medical History Chronic back pain Chronic neck pain, indicates he had recent C5, C6, C7 surgery at [facility] may be 2-3 months ago. Narcotic dependence Chronic smoker Implanted fentanyl pump, indicates he follows up with a pain management doctor that he has not seen him in a few months. Pump is almost empty. ADD Anxiety Depression Prior myocardial infarction CAD Hyperlipidemia Hypothyroidism Hyperlipidemia Osteoarthritis Bipolar disorder Past Surgical History C5 C6 C7 surgery with anterior approach at [facility] may be due to 3 months ago. Right knee surgery Reported Medications Reported Meds & Active Scripts Active Reported Fentanyl Inj (Fentanyl Citrate) 100 Mcg/2 Ml Amp 100 Mcg IJ DAILY Lamotrigine 200 Mg Tab 200 Mg PO DAILY Seroquel (Quetiapine Fumarate) 400 Mg Tab 400 Mg PO HS [amphetamine salts] 15 Mg PO BID Gabapentin 300 Mg Cap 300 Mg PO TID Fenofibrate Micronized 134 Mg Cap 145 Mg PO DAILY Tylenol-Codeine #3 (Acetaminophen-Codeine) 300-30 mg Tab 1 Tab PO Q6HR PRN Pantoprazole (Pantoprazole Sodium) 40 Mg Tab 40 Mg PO DAILY Zocor (Simvastatin) 80 Mg Tab 80 Mg PO DAILY Levothyroxine (Levothyroxine Sodium) 50 Mcg Tab 50 Mcg PO DAILY Allergies: Coded Allergies: No Known Allergies (Unverified , 12/06/16) Active Ordered Medications Inpatient Medications Acetaminophen (Tylenol) 650 mg Q4H PRN PO Pain 1-5 or Temp >101F Last administered on 12/07/16 21:52; Start 12/06/16 at 21:00 Acetaminophen/ Hydrocodone Bitart (Gap 7.5-325 Mg) 1 tab Q4H PRN PO PAIN SCALE 6 TO 10; Start 12/08/16 at 17:45; Status UNV Al Hydrox/Mg Hydrox/Simethicone (Mag-Al Plus Susp Liq) 30 ml Q6H PRN PO DYSPEPSIA; Start 12/06/16 at 21:00 Benztropine Mesylate (Cogentin Inj) 1 mg Q12H PRN IM EXTRA PYRAMIDAL SYMPTOMS; Start 12/06/16 at 21:00 Benztropine Mesylate (Cogentin) 1 mg Q12H PRN PO EXTRA PYRAMIDAL SYMPTOMS; Start 12/06/16 at 21:00 Diphenhydramine HCl (Benadryl) 50 mg HS PRN PO INSOMNIA Last administered on 21:53; Start 12/06/16 at 21:00 Fenofibrate (Tricor) 145 mg DAILY PO ; Start 12/09/16 at 09:00 Flumazenil (Romazicon Inj) 0.2 mg Q1M PRN IV PUSH SEE LABEL COMMENTS; Start at 21:00 Gabapentin (Neurontin) 300 mg TID PO Last administered on 12/08/16 12:06; Start 12/08/16 at 13:00 Hydroxyzine HCl (Atarax) 50 mg Q6H PRN PO ANXIETY Last administered on 20:44; Start 12/06/16 at 21:00 Levothyroxine Sodium (Synthroid) 50 mcg DAILY@0600 PO Last administered on 12/08 06:00; Start 12/07/16 at 06:00 Lorazepam (Ativan Inj) 2 mg Q15M PRN IV PUSH CIWA > 20; Start 12/06/16 at 21:00 Lorazepam (Ativan) 2 mg Q2H PRN PO CIWA 11-14; Start 12/06/16 at 21:00 Magnesium Hydroxide (Milk Of Magnesia Liq) 30 ml DAILY PRN PO CONSTIPATION; Start 12/06/16 at 21:00 Miscellaneous Information 1 DAILY T-DERMAL ; Start 12/07/16 at 09:00 Nicotine (Habitrol 21 Mg Patch.24 Hr) 1 patch DAILY T-DERMAL ; Start 12/07/16 at 09:00 Pantoprazole Sodium (Protonix) 40 mg DAILY PO Last administered on 12/08/16 08 :28; Start 12/07/16 at 09:00 Pravastatin Sodium (Pravachol) 80 mg DAILY PO Last administered on 12/08/16 08 :26; Start 12/07/16 at 09:00 Quetiapine Fumarate (SEROquel) 50 mg DAILY PO ; Start 12/09/16 at 09:00 Family History Mother from some type of gastric cancer that metastasized Father , he is not sure of cause. Social History Patient is , having marital problems. Has grown children. He quit smoking a year ago. Denies any alcohol or drug abuse. He is on disability. Physical Exam Vital Signs Vital Signs Date Time Temp Pulse Resp B/P (MAP) Pulse Ox O2 Delivery O2 Flow Rate FiO2 12/08/16 16:31 98.9 77 17 148/94 (112) 98 12/08/16 05:45 98.6 67 18 139/94 (109) 99 Physical Exam GENERAL: This is a well-nourished, well-developed patient, in no apparent distress. SKIN: No rashes, ecchymoses or lesions. Cool and dry. HEAD: Atraumatic. Normocephalic. No temporal or scalp tenderness. EYES: Pupils equal round and reactive. Extraocular motions intact. No scleral icterus. No injection or drainage. ENT: Nose without bleeding, purulent drainage or septal hematoma. Throat without erythema, tonsillar hypertrophy or exudate. Uvula midline. Airway patent. NECK: Trachea midline. No JVD or lymphadenopathy. Supple, nontender, no meningeal signs. CARDIOVASCULAR: Regular rate and rhythm without murmurs, gallops, or rubs. Faint scar noted to left anterior neck. RESPIRATORY: Clear to auscultation. Breath sounds equal bilaterally. No wheezes , rales, or rhonchi. GASTROINTESTINAL: Abdomen soft, non-tender, nondistended. Left lower quadrant with pump visible. No hepato-splenomegaly, or palpable masses. No guarding. MUSCULOSKELETAL: Extremities without clubbing, cyanosis, or edema. No joint tenderness, effusion, or edema noted. No calf tenderness. Negative Homans sign bilaterally. NEUROLOGICAL: Awake and alert. Cranial nerves II through XII intact. Motor and sensory grossly within normal limits. Five out of 5 muscle strength in all muscle groups. Normal speech. Result Diagram: 12/07/16 0855 12/07/16 0855 Imaging Last Impressions Neck CTA 12/06/16 0000 Signed Impressions: Service Date/Time: Tuesday, December 06, 2016 15:30 - CONCLUSION: Normal study Tony Lantigua MD Cervical Spine CT 12/06/16 0000 Signed Impressions: Service Date/Time: Tuesday, December 06, 2016 15:30 - CONCLUSION: 1. Prior anterior fusion from C5-C7. 2. Mild degenerative changes. 3. No acute abnormality. Michael Monteiro Jr., MD A/P Diagnosis: (1) Suicide attempt by hanging ICD Codes: T71.162A - Asphyxiation due to hanging, intentional self-harm, initial encounter Status: Acute (2) Chronic pain syndrome ICD Codes: G89.4 - Chronic pain syndrome Status: Chronic (3) Bipolar disorder ICD Codes: F31.9 - Bipolar disorder, unspecified Status: Acute (4) Polysubstance abuse ICD Codes: F19.10 - Other psychoactive substance abuse, uncomplicated Status: Chronic (5) Chronic narcotic dependence ICD Codes: F11.20 - Opioid dependence, uncomplicated Status: Chronic (6) Hypothyroid ICD Codes: E03.9 - Hypothyroidism, unspecified Status: Chronic Assessment and Plan Thank you for this consultation, we will assist with medical management 56-year-old male with history of bipolar, polysubstance abuse, chronic narcotic use, chronic pain. Presented after he was found hanging. Presented under [place] act -Continue with psychiatric care Chronic back and neck pain Chronic narcotic use Implanted fentanyl pump Polysubstance abuse -We will start Gap 7.5/325 one tab by mouth every 4 when necessary for pain 6- 10 -Continue gabapentin Depressed TSH -Hold Synthroid -Repeat TSH Home medications reviewed, some have been initiated Plan of care discussed with the patient, attending and registered nurse. Further management of the patient will be dependent on the hospital course This patient was seen by myself and Dr. Zendejas, this consultation is written on his behalf. Problem Qualifiers (1) Suicide attempt by hanging: Qualified Codes: T71.162A - Asphyxiation due to hanging, intentional self-harm , initial encounter (2) Bipolar disorder: Qualified Codes: F31.4 - Bipolar disorder, current episode depressed, severe, without psychotic features (3) Hypothyroid: Qualified Codes: E03.9 - Hypothyroidism, unspecified Kacey Cortes Dec 08, 2016 18:01
[2016-12-08] MEDS: diphenhydrAMINE HCL 50 MG CAP PO PRN (20:18)
[2016-12-08] MEDS ORDERED: QUEtiapine FUMARATE 200 MG TAB PO SCH (21:00)
[2016-12-08] MEDS: hydrOXYzine HCL 50 MG TAB PO PRN (23:18)
[2016-12-08] MEDS: ACETAMINOPHEN/HYDROcodone 325 MG/7.5 MG TAB PO PRN (23:19)
[2016-12-09] MEDS: ACETAMINOPHEN/HYDROcodone 325 MG/7.5 MG TAB PO PRN ×3 (05:17→21:30)
[2016-12-09 06:07] VITALS: BP 141/87; PULSE 71; RESP 18; TEMP 97.8; O2SAT 97
[2016-12-09] MEDS: REMOVE OLD PATCH T-DERMAL SCH (09:00)
[2016-12-09] MEDS ORDERED: QUEtiapine FUMARATE 25 MG TAB PO SCH (09:00)
[2016-12-09] MEDS: PANTOPRAZOLE SOD 40 MG DELAYED RELEASE TAB PO SCH (09:01)
[2016-12-09] MEDS: PRAVASTATIN SOD 80 MG TAB PO SCH (09:01)
[2016-12-09] MEDS: FENOFIBRATE 145 MG TAB PO SCH (09:01)
[2016-12-09] MEDS: GABAPENTIN 300 MG CAP PO SCH ×3 (09:02→17:14)
[2016-12-09] MEDS: NICOTINE 21 MG/24 HR PATCH T-DERMAL SCH (09:02)
--- NOTE | 2016-12-09 10:09 | HHI.PYPN ---
Subjective Remarks Patient seen and examined with nurse. Chart reviewed. Case discussed with nursing staff who reports that the patient has been considerably more pleasant after he was provided with a small dose of [place] by the hospitalist who saw the patient yesterday. On my examination today, patient presents as contrite. He says that he is trying to change his mood "to be a good, nice attitude." He is hopeful that his will take him back. His goal for remaining in the hospital is to "work on myself so I don't think about suicide all the time." We discuss the extensive multisourcing noted on the E-FORCSE report. Patient seems not to find this problematic, noting that he goes to see doctors and " they just give me some" controlled substances. He would like to titrate Seroquel and add Wellbutrin for mood as this has worked in the past for low mood. Denies a history of seizure disorder or eating disorder. Denies side effects from medications. No new physical complaints. No reported fecal incontinence overnight. Review of Systems Except as stated in HPI: all other systems reviewed are Neg Objective Alert: Yes [place]: Person, Place, Date Mood: Other (Remains dysphoric) Affect: Restricted Memory Intact: Comment (fair) Hallucinations: Other (No hallucinations) Delusions: No Delusion Type: Other (No delusions) Suicidal: Ideation (No SI) Homicidal: Ideation (No HI) Insight/Judgment Poor Remarks No motor abnormalities noted. Thought process linear. Grooming and hygiene fair. No signs of withdrawal noted. Labs Labs reviewed. I note repeat TFTs are pending. Vitals/IOs Vital Signs Date Time Temp Pulse Resp B/P (MAP) Pulse Ox O2 Delivery O2 Flow Rate FiO2 12/09/16 06:07 97.8 71 18 141/87 (105) 97 12/06/16 18:00 Room Air Assessment & Plan Problem List: (1) Bipolar disorder ICD Codes: F31.9 - Bipolar disorder, unspecified Status: Acute (2) Polysubstance abuse ICD Codes: F19.10 - Other psychoactive substance abuse, uncomplicated Status: Chronic Assessment & Plan Titrate Seroquel over weekend to 100/300mg. Add Wellbutrin SR 100mg BID. R/B/ A d/w pt. Monitor opiate usage closely and consider discontinuing if it seems patient is misusing this medication. Continue to monitor on inpatient unit. Hospitalist showroom consultant input appreciated. Continue other medications and care as ordered. Justification for Cont. Inpt. Medication changes in process. Monitoring for impairments in safety. High risk for decompensation and less restrictive environment. Discharge Planning Pending psychiatric stabilization. Request HC Surrog/Guard Advoc?: No Problem Qualifiers (1) Bipolar disorder: Qualified Codes: F31.4 - Bipolar disorder, current episode depressed, severe, without psychotic features Woody Lazo MD Dec 09, 2016 10:09
[2016-12-09] MEDS ORDERED: ADDE15TA PO (11:07)
[2016-12-09 11:47] LABS: FREE T4 1.15 NG/DL (0.76-1.46)
[2016-12-09] MEDS: buPROPion HCL 100 MG SUSTAINED RELEASE TAB PO SCH (15:30)
[2016-12-09 15:44] VITALS: BP 124/74; PULSE 72; RESP 18; TEMP 98.5; O2SAT 98
[2016-12-09] MEDS: QUEtiapine FUMARATE 100 MG TAB PO SCH (21:00)
[2016-12-10] MEDS: diphenhydrAMINE HCL 50 MG CAP PO PRN (02:23)
[2016-12-10 06:12] VITALS: BP 134/87; PULSE 77; RESP 18; TEMP 97.9; O2SAT 98
[2016-12-10] MEDS: FENOFIBRATE 145 MG TAB PO SCH (08:46)
[2016-12-10] MEDS: PRAVASTATIN SOD 80 MG TAB PO SCH (08:47)
[2016-12-10] MEDS: GABAPENTIN 300 MG CAP PO SCH ×3 (08:47→18:00)
[2016-12-10] MEDS: PANTOPRAZOLE SOD 40 MG DELAYED RELEASE TAB PO SCH (08:47)
[2016-12-10] MEDS: QUEtiapine FUMARATE 25 MG TAB PO SCH (08:47)
[2016-12-10] MEDS: REMOVE OLD PATCH T-DERMAL SCH (08:50)
[2016-12-10] MEDS: NICOTINE 21 MG/24 HR PATCH T-DERMAL SCH (08:51)
[2016-12-10] MEDS: buPROPion HCL 100 MG SUSTAINED RELEASE TAB PO SCH ×2 (09:07→14:00)
[2016-12-10] MEDS: ACETAMINOPHEN/HYDROcodone 325 MG/7.5 MG TAB PO PRN ×3 (12:13→21:09)
--- NOTE | 2016-12-10 17:20 | HHI.PYPN ---
Subjective Remarks Patient was seen and case discussed with nursing. Mood today is "pretty good." Patient is talking to his on the phone on a regular basis. He describes using various substances before suicide attempt. Patient denies suicidal or homicidal ideation intent or plan. He is eating and sleeping well, interacting well with staff and other patients. Compliant with medications Objective Alert: Yes [place]: Person, Place, Date Mood: Depressed Affect: Restricted Memory Intact: Comment (fair) Hallucinations: Other (No hallucinations) Delusions: No Delusion Type: Other (No delusions) Suicidal: Ideation (No SI) Homicidal: Ideation (No HI) Insight/Judgment Poor Vitals/IOs Vital Signs Date Time Temp Pulse Resp B/P (MAP) Pulse Ox O2 Delivery O2 Flow Rate FiO2 12/10/16 06:12 97.9 77 18 134/87 (103) 98 12/06/16 18:00 Room Air Assessment & Plan Problem List: (1) Bipolar disorder ICD Codes: F31.9 - Bipolar disorder, unspecified Status: Acute (2) Polysubstance abuse ICD Codes: F19.10 - Other psychoactive substance abuse, uncomplicated Status: Chronic Assessment & Plan Continue current treatment plan Justification for Cont. Inpt. Patient would decompensate in a less restrictive setting Request HC Surrog/Guard Advoc?: No Problem Qualifiers (1) Bipolar disorder: Qualified Codes: F31.4 - Bipolar disorder, current episode depressed, severe, without psychotic features Mario Villalobos DO Dec 10, 2016 17:20
[2016-12-10 18:48] VITALS: BP 127/86; PULSE 100; RESP 18; TEMP 98.3; O2SAT 98
[2016-12-10] MEDS: QUEtiapine FUMARATE 100 MG TAB PO SCH (21:00)
[2016-12-11] MEDS: ACETAMINOPHEN/HYDROcodone 325 MG/7.5 MG TAB PO PRN ×4 (01:33→21:02)
[2016-12-11] MEDS: LEVOTHYROXINE SODIUM 50 MCG TAB PO SCH (05:02)
[2016-12-11 05:49] VITALS: BP 162/92; PULSE 54; RESP 18; TEMP 98.2; O2SAT 98
[2016-12-11] MEDS: LORazepam 1 MG TAB PO PRN (05:55)
[2016-12-11] MEDS: REMOVE OLD PATCH T-DERMAL SCH (09:00)
[2016-12-11] MEDS: NICOTINE 21 MG/24 HR PATCH T-DERMAL SCH (09:00)
[2016-12-11] MEDS: QUEtiapine FUMARATE 25 MG TAB PO SCH (09:16)
[2016-12-11] MEDS: PRAVASTATIN SOD 80 MG TAB PO SCH (09:16)
[2016-12-11] MEDS: GABAPENTIN 300 MG CAP PO SCH ×3 (09:16→18:19)
[2016-12-11] MEDS: FENOFIBRATE 145 MG TAB PO SCH (09:16)
[2016-12-11] MEDS: PANTOPRAZOLE SOD 40 MG DELAYED RELEASE TAB PO SCH (09:16)
[2016-12-11] MEDS: buPROPion HCL 100 MG SUSTAINED RELEASE TAB PO SCH ×2 (09:17→14:03)
--- NOTE | 2016-12-11 14:13 | HHI.PR ---
Subjective Remarks back pain well controlled "that stuff is good" asking for prescription when he goes home to "hold him for a few days" no other complaints Objective Objective Results - Vital Signs Date Time Temp Pulse Resp B/P (MAP) Pulse Ox O2 Delivery O2 Flow Rate FiO2 12/11/16 05:49 98.2 54 18 162/92 (115) 98 12/10/16 18:48 98.3 100 18 127/86 (100) 98 Result Diagram: 12/07/16 0855 12/07/16 0855 Imaging Last Impressions Neck CTA 12/06/16 0000 Signed Impressions: Service Date/Time: Tuesday, December 06, 2016 15:30 - CONCLUSION: Normal study Tony Lantigua MD Cervical Spine CT 12/06/16 0000 Signed Impressions: Service Date/Time: Tuesday, December 06, 2016 15:30 - CONCLUSION: 1. Prior anterior fusion from C5-C7. 2. Mild degenerative changes. 3. No acute abnormality. Michael Monteiro Jr., MD ROS General: No: Fatigue, Weakness HEENT: No: Sore Throat, Dysphagia Cardiac: No: Chest Pain, Edema, Palpitations Pulmonary: No: Cough, SOB, Wheezing GI: No: Abdominal Pain, BM, Diarrhea, N/V /REGIONAL DIRECTOR: No: Dysuria, Urgency Neuro/MS: Other (back pain well controlled ), No: Lightheaded, Confusion Psych: No: Anxiety, Depression Skin: No: Itching, Rash Physical Exam Physical Exam GENERAL: This is a well-nourished, well-developed patient, in no apparent distress. SKIN: No rashes, ecchymoses or lesions. Cool and dry. HEAD: Atraumatic. Normocephalic. No temporal or scalp tenderness. EYES: Pupils equal round and reactive. Extraocular motions intact. No scleral icterus. No injection or drainage. ENT: Nose without bleeding, purulent drainage or septal hematoma. Throat without erythema, tonsillar hypertrophy or exudate. Uvula midline. Airway patent. NECK: Trachea midline. No JVD or lymphadenopathy. Supple, nontender, no meningeal signs. CARDIOVASCULAR: Regular rate and rhythm without murmurs, gallops, or rubs. Faint scar noted to left anterior neck. RESPIRATORY: Clear to auscultation. Breath sounds equal bilaterally. No wheezes , rales, or rhonchi. GASTROINTESTINAL: Abdomen soft, non-tender, nondistended. Left lower quadrant with pump visible. No hepato-splenomegaly, or palpable masses. No guarding. MUSCULOSKELETAL: Extremities without clubbing, cyanosis, or edema. No joint tenderness, effusion, or edema noted. No calf tenderness. Negative Homans sign bilaterally. NEUROLOGICAL: Awake and alert. Cranial nerves II through XII intact. Motor and sensory grossly within normal limits. Five out of 5 muscle strength in all muscle groups. Normal speech. Urinary Catheter: No Vascular Central Line Catheter: No A/P Diagnosis: (1) Suicide attempt by hanging ICD Codes: T71.162A - Asphyxiation due to hanging, intentional self-harm, initial encounter Status: Acute (2) Chronic pain syndrome ICD Codes: G89.4 - Chronic pain syndrome Status: Chronic (3) Bipolar disorder ICD Codes: F31.9 - Bipolar disorder, unspecified Status: Acute (4) Polysubstance abuse ICD Codes: F19.10 - Other psychoactive substance abuse, uncomplicated Status: Chronic (5) Chronic narcotic dependence ICD Codes: F11.20 - Opioid dependence, uncomplicated Status: Chronic (6) Hypothyroid ICD Codes: E03.9 - Hypothyroidism, unspecified Status: Chronic Assessment and Plan 56-year-old male with history of bipolar, polysubstance abuse, chronic narcotic use, chronic pain. Presented after he was found hanging. Presented under [place] act -Continue with psychiatric care Chronic back and neck pain Chronic narcotic use Implanted fentanyl pump Polysubstance abuse -continue [place] 7.5/325 one tab by mouth every 4 when necessary for pain 6-10 -Continue gabapentin Depressed TSH -Synthroid restarted Continue with above tx D/W RN D/W Dr. Zendejas D/W pt This patient was seen by myself and Dr. Zendejas, this note is written on his behalf. Problem Qualifiers (1) Suicide attempt by hanging: Qualified Codes: T71.162A - Asphyxiation due to hanging, intentional self-harm , initial encounter (2) Bipolar disorder: Qualified Codes: F31.4 - Bipolar disorder, current episode depressed, severe, without psychotic features (3) Hypothyroid: Qualified Codes: E03.9 - Hypothyroidism, unspecified Kacey Cortes Dec 11, 2016 14:13
--- NOTE | 2016-12-11 16:26 | HHI.PYPN ---
Subjective Remarks Patient was seen and case discussed with nursing. Patient notes a big improvement in pain and attributes it to Lortab or Neurontin. He relays a much brighter mood believing that his will work out the relationship in counseling. Unbeknownst to him, told nursing that she plans to leave him at the end of the stay. Also per nursing, patient was found to be filling various controlled substances from different doctors in a short amount of time suggesting doctor shopping. Patient denies suicidal or homicidal ideation intent or plan. Eating and sleeping well. Compliant with medications, social on the unit Objective Alert: Yes [place]: Person, Place, Date Mood: Other ("better") Affect: Restricted Memory Intact: Comment (fair) Hallucinations: Other (No hallucinations) Delusions: No Delusion Type: Other (No delusions) Suicidal: Ideation (No SI) Homicidal: Ideation (No HI) Insight/Judgment Poor Vitals/IOs Vital Signs Date Time Temp Pulse Resp B/P (MAP) Pulse Ox O2 Delivery O2 Flow Rate FiO2 12/11/16 05:49 98.2 54 18 162/92 (115) 98 Assessment & Plan Problem List: (1) Bipolar disorder ICD Codes: F31.9 - Bipolar disorder, unspecified Status: Acute (2) Polysubstance abuse ICD Codes: F19.10 - Other psychoactive substance abuse, uncomplicated Status: Chronic Assessment & Plan Continue current treatment plan Justification for Cont. Inpt. Patient would decompensate in a less restrictive setting Request HC Surrog/Guard Advoc?: No Problem Qualifiers (1) Bipolar disorder: Qualified Codes: F31.4 - Bipolar disorder, current episode depressed, severe, without psychotic features Mario Villalobos DO Dec 11, 2016 16:26
[2016-12-11 18:00] VITALS: BP 126/77; PULSE 54; RESP 18; TEMP 98.2; O2SAT 99
[2016-12-11] MEDS: QUEtiapine FUMARATE 100 MG TAB PO SCH (20:59)
[2016-12-11] MEDS: diphenhydrAMINE HCL 50 MG CAP PO PRN (21:02)
[2016-12-12] MEDS: ACETAMINOPHEN/HYDROcodone 325 MG/7.5 MG TAB PO PRN ×4 (04:40→20:51)
[2016-12-12] MEDS: LEVOTHYROXINE SODIUM 50 MCG TAB PO SCH (05:27)
[2016-12-12 05:59] VITALS: BP 134/90; PULSE 66; RESP 19; TEMP 98; O2SAT 99
[2016-12-12] MEDS: NICOTINE 21 MG/24 HR PATCH T-DERMAL SCH (09:00)
[2016-12-12] MEDS: REMOVE OLD PATCH T-DERMAL SCH (09:00)
[2016-12-12] MEDS: GABAPENTIN 300 MG CAP PO SCH ×3 (10:04→17:57)
[2016-12-12] MEDS: FENOFIBRATE 145 MG TAB PO SCH (10:04)
[2016-12-12] MEDS: PRAVASTATIN SOD 80 MG TAB PO SCH (10:05)
[2016-12-12] MEDS: QUEtiapine FUMARATE 25 MG TAB PO SCH (10:05)
[2016-12-12] MEDS: PANTOPRAZOLE SOD 40 MG DELAYED RELEASE TAB PO SCH (10:07)
[2016-12-12] MEDS: buPROPion HCL 100 MG SUSTAINED RELEASE TAB PO SCH ×2 (10:09→14:00)
--- NOTE | 2016-12-12 11:20 | HHI.PYPN ---
Subjective Remarks Patient seen and examined with counselor and nurse. Chart reviewed. Case discussed with nursing staff. No behavioral issues overnight. On my examination today, the patient is conciliatory and a little bit ingratiating. He continues to apologize for his behavior before the weekend. He describes his admission as "a learnable experience." Sleep remains somewhat poor. No SI or HI. Now says that his is willing to take him back. Counselor confirms with that this is so. Denies side effects from medications. No physical complaints. Pain complaints improved with narcotic from hospitalist; it appears he is using about 4 doses a day. Review of Systems Except as stated in HPI: all other systems reviewed are Neg Objective Alert: Yes [place]: Person, Place, Date Mood: Calm Affect: Appropriate Memory Intact: Comment (fair) Hallucinations: Other (No hallucinations) Delusions: No Delusion Type: Other (no delusional material) Suicidal: Ideation (No SI) Homicidal: Ideation (No HI) Insight/Judgment Poor Remarks no motor abnormalities noted. No signs of withdrawal noted. Thought process linear. Labs Labs reviewed. Vitals/IOs Vital Signs Date Time Temp Pulse Resp B/P (MAP) Pulse Ox O2 Delivery O2 Flow Rate FiO2 12/12/16 05:59 98.0 66 19 134/90 (105) 99 Assessment & Plan Problem List: (1) Bipolar disorder ICD Codes: F31.9 - Bipolar disorder, unspecified Status: Acute (2) Polysubstance abuse ICD Codes: F19.10 - Other psychoactive substance abuse, uncomplicated Status: Chronic Assessment & Plan Titrate nighttime dose of Seroquel to 300 mg to help with sleep and for mood stabilization. Continue other psychotropics as ordered. Discontinue CIWA scale ; no signs of withdrawal. Continue other medications and care as ordered. Justification for Cont. Inpt. Risk for decompensation Discharge Planning Possible middle of the week discharge Request HC Surrog/Guard Advoc?: No Problem Qualifiers (1) Bipolar disorder: Qualified Codes: F31.4 - Bipolar disorder, current episode depressed, severe, without psychotic features Woody Lazo MD Dec 12, 2016 11:20
[2016-12-12 17:53] VITALS: BP 129/84; PULSE 80; RESP 18; TEMP 98.5; O2SAT 99
[2016-12-12] MEDS ORDERED: QUEtiapine FUMARATE 300 MG TAB PO SCH (21:00)
[2016-12-13] MEDS: LEVOTHYROXINE SODIUM 50 MCG TAB PO SCH (05:06)
[2016-12-13] MEDS: ACETAMINOPHEN/HYDROcodone 325 MG/7.5 MG TAB PO PRN ×5 (05:08→22:02)
[2016-12-13 06:28] VITALS: BP 117/75; PULSE 81; RESP 18; TEMP 97.6; O2SAT 98
[2016-12-13] MEDS: REMOVE OLD PATCH T-DERMAL SCH (09:00)
[2016-12-13] MEDS: NICOTINE 21 MG/24 HR PATCH T-DERMAL SCH (09:00)
[2016-12-13] MEDS: QUEtiapine FUMARATE 100 MG TAB PO SCH (09:28)
[2016-12-13] MEDS: PANTOPRAZOLE SOD 40 MG DELAYED RELEASE TAB PO SCH (09:28)
[2016-12-13] MEDS: PRAVASTATIN SOD 80 MG TAB PO SCH (09:28)
[2016-12-13] MEDS: GABAPENTIN 300 MG CAP PO SCH ×3 (09:28→17:41)
[2016-12-13] MEDS: FENOFIBRATE 145 MG TAB PO SCH (09:28)
[2016-12-13] MEDS: buPROPion HCL 100 MG SUSTAINED RELEASE TAB PO SCH ×2 (09:30→14:32)
--- NOTE | 2016-12-13 09:38 | HHI.PYPN ---
Subjective Remarks Patient seen and examined with counselor and nurse. Chart reviewed. Case discussed in treatment team. On my examination today, patient reports sleep was improved overnight, charting indicates 6 hours. Affect remains a little blunted and anhedonic but overall improved. No psychotic symptoms. Extensive discussion regarding patient's substance use issues. We discuss how his substance use issues contribute to chronic suicide risk. He initially says that he might be willing to "cut back on pills." I educate him regarding the several levels of chem dep treatment options available, such as residential, IOP /PHP, and ambulatory treatment. He says he might consider ambulatory treatment , although I do recommend a higher level of care, namely residential rehab. Denies side effects from medications. Reports he has tolerated as much as 800mg /day of Seroquel in the past. Agreeable to titrating this medication. No new physical complaints. Review of Systems Except as stated in HPI: all other systems reviewed are Neg Objective Alert: Yes [place]: Person, Place, Date Mood: Calm Affect: Blunted Memory Intact: Comment (intact) Hallucinations: Other (No AVH) Delusions: No Delusion Type: Other (No delusions elicited) Suicidal: Ideation (no SI) Homicidal: Ideation (no HI) Insight/Judgment Poor Remarks No motor abnormalities noted. No signs of withdrawal noted. TP linear. Grooming and hygiene good. Labs Labs reviewed. Vitals/IOs Vital Signs Date Time Temp Pulse Resp B/P (MAP) Pulse Ox O2 Delivery O2 Flow Rate FiO2 12/13/16 06:28 97.6 81 18 117/75 (89) 98 Assessment & Plan Problem List: (1) Bipolar disorder ICD Codes: F31.9 - Bipolar disorder, unspecified Status: Acute (2) Polysubstance abuse ICD Codes: F19.10 - Other psychoactive substance abuse, uncomplicated Status: Chronic Assessment & Plan Titrate Seroquel to 100/400mg for mood stabilization and to help with sleep. Monitor for tolerability of this dose overnight. Continue other medications and care as ordered. Justification for Cont. Inpt. Med changes. Discharge Planning Anticipate discharge tomorrow, Monday, barring clinical deterioration. Request HC Surrog/Guard Advoc?: No Problem Qualifiers (1) Bipolar disorder: Qualified Codes: F31.4 - Bipolar disorder, current episode depressed, severe, without psychotic features Woody Lazo MD Dec 13, 2016 09:38
--- NOTE | 2016-12-13 11:01 | PD.TTN ---
Patient Problems 1. Discharge planning 2. Medication compliance 3. Knowledge deficit 4. Lack of coping skills Progress Toward Goals Provider Present: Dr. Jonatan Lazo Provider Input: Dr. Lazo treatment team met to discuss treatement plan, medication, and discharge. Per Dr. Lazo patient will be discharged if patient continues to remain stable and medication compliant. Patient's medication will be increased to help with sleep and mood Nurse(s) Input: Patient's nurse Justyna Castañeda reports patient is medication focused, has lack of insight, no accountability for addiction Psychiatric Counselors Present: Margaret Bower LCSW, [facility] Crowder [facility], Holley Cano [facility] Psych Therapist Input: Patient presents anxious, cooperative but guarded, affect blunted. Patient is alert to person, place, and time, but has no insight to situation. Patient is medication focused. Patient's speech is clear, pressured and organized. Patient made good eye contact. Patient denies suicidal and homicidal ideation. Patient did not present to be internally stimulated or to be delusional. Patient's will be discharged home tomorrow if patient continues to be stablized on unit. Spoke to patient's she is ok with patient coming home. Group Spec/RT/OT/TORRES Present: BRIAN Price Group Spec/RT/OT/TORRES Input: Patient isolates into his room, does not attent Yajaira Dangelo [facility] Dec 13, 2016 11:01
[2016-12-13 18:18] VITALS: BP 122/86; PULSE 76; RESP 18; TEMP 98.2; O2SAT 99
[2016-12-13] MEDS ORDERED: QUEtiapine FUMARATE 200 MG TAB PO SCH (21:00)
[2016-12-14] MEDS: LEVOTHYROXINE SODIUM 50 MCG TAB PO SCH (05:27)
[2016-12-14 05:48] VITALS: BP_SYST 137; BP_SYST 147; BP_DIAS 108; BP_DIAS 86; PULSE 64; RESP 16; TEMP 98.3; O2SAT 98
[2016-12-14] MEDS: NICOTINE 21 MG/24 HR PATCH T-DERMAL SCH (09:00)
[2016-12-14] MEDS: REMOVE OLD PATCH T-DERMAL SCH (09:00)
[2016-12-14] MEDS ORDERED: QUET1TAB9 PO (09:59)
[2016-12-14] MEDS ORDERED: QUET1TAB8 PO (09:59)
[2016-12-14] MEDS ORDERED: BUPR100CR PO (09:59)
[2016-12-14] MEDS ORDERED: GABA300C5 PO (09:59)
--- NOTE | 2016-12-14 09:59 | HHI.DS ---
Psychiatry Discharge Summary Inpatient Psychiatric care?: Yes Advance Directive: No Mental Health AdvanceDirective: No Health Care Proxy: No Admission Admission Date Dec 06, 2016 at 20:47 Admission Diagnosis: (1) Bipolar disorder ICD Code: F31.9 - Bipolar disorder, unspecified (2) Polysubstance abuse ICD Code: F19.10 - Other psychoactive substance abuse, uncomplicated Brief History Mr. Barajas is a 56-year-old male with a chart history of bipolar disorder who presents under a [place] act after an attempted hanging. Per the ED provider's note, the patient was found hanging by EMS with foam coming from his mouth. Urine toxicology suggests use of multiple substances including opiates, amphetamines, benzos and cannabinoids. Reviewing the electronic medical record , I note that the patient was admitted most recently here under Dr. Andrade in 2005 , at which time he was apparently on Seroquel. Patient seen and examined with nurse. Chart reviewed. Case discussed with nursing staff. On my examination today, the patient presents as extremely irritable and dysphoric. He says that he tried to hang himself because he and his weren't getting along. When I ask about ongoing SI, the patient tells me that he has been experiencing chronic back pain for 7 years, and he does admit to ongoing SI, although he denies desire to hurt himself on the inpatient psychiatric unit. He denies homicidal ideation. He denies audiovisual hallucinations. No delusions elicited. Sleep is fair but appetite is poor. Focus and concentration are poor. He seems quite fatigued. He tells me "I want out as soon as I can, and I am prepared to fight for that," by which he means he will retain an trial attorney. I have discussed legal status and [place] [address] with him. He is fairly uncooperative historian generally. Past psychiatric history: Patient has a chart history of bipolar disorder. The patient declines to discuss his psychiatric history otherwise, although he does admit to a history of previous suicide attempt by trying to cut his wrists. Tobacco Use In Past 30 Days: No Tobacco Past 30 Days Alcohol Use: Monthly or Less Hospital Course Patient was admitted to a locked, inpatient psychiatric unit. A general medical consultation was obtained. Appropriate precautions were in place throughout patient's hospital stay. Patient was seen and examined daily on the unit by psychiatry and also visited by counselor. Psychotropic medications were adjusted. Patient tolerated medications well without side effects. Patient had improvement in presenting psychiatric symptomatology during the course of his hospital stay. There was no evidence of any suicidality or homicidality on the inpatient unit. Patient's behavior improved with benefit of pharmacologic treatment. Patient's is now agreeable to having him home. On the day of discharge: Patient seen and examined with counselor and nurse. Chart reviewed. Case discussed with nursing staff. No behavioral issues overnight. On my examination today, the patient is requesting to be discharged from the hospital today. He denies any suicidal ideation, intent or plan on direct questioning and contracts for safety. Mood is described as "hopeful." He is future oriented. No ongoing depressive or hypomanic/manic symptoms. Slept fairly well overnight. Denies audiovisual hallucinations. No delusions elicited. He does agree to pursue chemical dependency evaluation and treatment on an outpatient basis at my recommendation. Denies side effects from medications. No physical complaints. Weighing the acute, chronic, and protective factors and based on the available evidence, I miner helper to a reasonable degree of medical certainty that the patient is at low imminent risk of harm to self or others from a mental illness as defined under the [place] act and his level of function is adequate for outpatient care. Patient substance use issues , if left unaddressed on an outpatient basis, do represent a component of chronic risk for harm, and I have therefore strongly recommended that the patient pursue chemical dependency evaluation and treatment on an outpatient basis. The patient no longer meets criteria for involuntary psychiatric hospitalization and is requesting discharge from the unit today. He will therefore be discharged in stable condition with psychiatric follow-up as arranged by counselor. Patient is also to follow-up with primary care. I counseled the patient to abstain from abuse of substances. I counseled patient regarding warning signs for need to return to the psychiatric emergency room as part of the general safety plan. Results Blood Pressure 147 / 86 Vital Signs Date Time Temp Pulse Resp B/P (MAP) Pulse Ox O2 Delivery O2 Flow Rate FiO2 12/14/16 05:48 98.3 64 16 137/108 (118) 98 147/86 (106) Laboratory Results Test 12/07/16 08:55 Cholesterol Level 150 MG/DL (120-200) HDL Cholesterol 63.3 MG/DL (40.0-60.0) Hemoglobin A1c 5.3 % (4.3-6.0) LDL Cholesterol 69 MG/DL (0-99) Triglycerides Level 88 MG/DL (42-150) Summary of Procedures None done Imaging Last Impressions Neck CTA 12/06/16 0000 Signed Impressions: Service Date/Time: Tuesday, December 06, 2016 15:30 - CONCLUSION: Normal study Tony Lantigua MD Cervical Spine CT 12/06/16 0000 Signed Impressions: Service Date/Time: Tuesday, December 06, 2016 15:30 - CONCLUSION: 1. Prior anterior fusion from C5-C7. 2. Mild degenerative changes. 3. No acute abnormality. Michael Monteiro Jr., MD Pending results at discharge: No Medications # of Antipsychotic meds at D/C: 1 Approp Antipsych med options 1 - Minimum of three failed multiple trials of monotherapy. 2 - Documented plan to taper to monotherapy due to previous use of multiple meds OR cross-taper in progress at D/C. 3 - Documentation of augmentation of Clozapine. 4 - Justification other than those listed in allowable values 1-3, document here : Discharge Discharge Date: Dec 14, 2016 Discharge Diagnosis: (1) Bipolar affective disorder in remission Diagnosis: Principal ICD Code: F31.70 - Bipolar disorder, currently in remission, most recent episode unspecified (2) Polysubstance abuse Diagnosis: Secondary (counseled to quit) ICD Code: F19.10 - Other psychoactive substance abuse, uncomplicated Status: Chronic Mental Status Exam at Disch Patient is in hospital attire. Patient is well groomed. Patient is awake and alert and oriented person and hospital at least. No evidence of delirium. No motor abnormalities appreciated. No signs of withdrawal noted. Speech is within normal limits for rate, tone, volume. Memory grossly intact on clinical exam. Mood is hopeful. Affect is full and reactive. Thought process linear. No delusions elicited. Denies audiovisual hallucinations and does not appear internally stimulated. Denies suicidal or homicidal ideation, intent, or plan and contracts for safety. Insight and judgment seem [id number] at best. Pt Condition on Discharge: Stable Discharge Disposition: Discharge Home Discharge Instructions Diet Instructions: As Tolerated, No Restrictions Activities you can perform: Weight Bearing as [place] Scheduled Appointment: as per counselor's notes New Medications: Bupropion HCl ER 12 HR (Wellbutrin SR 12 HR) 100 Mg Tab 100 MG PO BID@0900,1400 for Mental Health for 15 Days, TAB 1 Refill Quetiapine (Quetiapine) 200 Mg Tab 400 MG PO HS for Mental Health for 15 Days, TAB 1 Refill Quetiapine (Quetiapine) 100 Mg Tab 100 MG PO DAILY for Mental Health for 15 Days, TAB 1 Refill Continued Medications: Fenofibrate Micronized (Fenofibrate Micronized) 134 Mg Cap 145 MG PO DAILY, #30 CAP 0 Refills Fentanyl Inj (Fentanyl Inj) 100 Mcg/2 Ml Amp 100 MCG IJ DAILY for Pain Management, AMPULE 0 Refills Gabapentin (Gabapentin) 300 Mg Cap 300 MG PO TID for Health for 15 Days, CAP 1 Refill (This prescription has been renewed) Levothyroxine (Levothyroxine) 50 Mcg Tab 50 MCG PO DAILY for Thyroid, #30 TAB 0 Refills Pantoprazole (Pantoprazole) 40 Mg Tab 40 MG PO DAILY for Reflux, #30 TAB 0 Refills Simvastatin (Zocor) 80 Mg Tab 80 MG PO DAILY for Cholesterol Management, #30 TAB 0 Refills Discontinued Medications: Acetaminophen-Codeine (Tylenol-Codeine #3) 300-30 mg Tab 1 TAB PO Q6HR PRN for PAIN, TAB 0 Refills Amphetamine-Dextroamphetamine (Adderall) 15 Mg Tab 15 MG PO BID, #60 TAB 0 Refills Avoid late evening doses. Space doses at least 4 to 6 hours if more than once/day dosing. Lamotrigine (Lamotrigine) 200 Mg Tab 200 MG PO DAILY for Control Seizures, #30 TAB 0 Refills Quetiapine (Seroquel) 400 Mg Tab 400 MG PO HS, #30 TAB 0 Refills Discharge Time <= 30 minutes Discharge/Advance Care Plan Health Problems: (1) Bipolar disorder (2) Polysubstance abuse Goals to promote your health * To prevent worsening of your condition and complications * To maintain your health at the optimal level Directions to meet your goals Take your medications as prescribed Follow your dietary instruction Follow activity as directed Keep your appointments as scheduled Take your immunizations and boosters as scheduled If your symptoms worsen call your PCP, if no PCP go to Urgent Care Center or Emergency Room For 31/10 questions related to your inpatient stay or results of tests pending at discharge, please contact Dr. Woody Lazo at Smoking is Dangerous to Your Health. Avoid second hand smoking Problem Qualifiers (1) Bipolar disorder: Qualified Codes: F31.4 - Bipolar disorder, current episode depressed, severe, without psychotic features Woody Lazo MD Dec 14, 2016 09:59
[2016-12-14] MEDS: PANTOPRAZOLE SOD 40 MG DELAYED RELEASE TAB PO SCH (10:02)
[2016-12-14] MEDS: QUEtiapine FUMARATE 100 MG TAB PO SCH (10:02)
[2016-12-14] MEDS: PRAVASTATIN SOD 80 MG TAB PO SCH (10:03)
[2016-12-14] MEDS: buPROPion HCL 100 MG SUSTAINED RELEASE TAB PO SCH ×2 (10:03→14:00)
[2016-12-14] MEDS: GABAPENTIN 300 MG CAP PO SCH ×2 (10:03→13:00)
[2016-12-14] MEDS: FENOFIBRATE 145 MG TAB PO SCH (10:03)
[2016-12-14] MEDS: ACETAMINOPHEN/HYDROcodone 325 MG/7.5 MG TAB PO PRN ×2 (10:05→14:19)
== END 2016-12-14 15:30 | disposition home or self-care (01) | DRG 885 ==
LOC: NEPE 13:51 → NEDA 20:47 → H270 23:25
PROVIDERS: ADMIT Psychiatry & Neurology Psychiatry; ATTEND Psychiatry & Neurology Psychiatry
DX: F31.4 Bipolar disorder, current episode depressed, severe, without psychotic features (principal); T71.162A Asphyxiation due to hanging, intentional self-harm, initial encounter; F11.20 Opioid dependence, uncomplicated; Z78.1 Physical restraint status; F41.9 Anxiety disorder, unspecified; G89.4 Chronic pain syndrome; Z98.1 Arthrodesis status; K21.9 Gastro-esophageal reflux disease without esophagitis; E03.9 Hypothyroidism, unspecified; E78.5 Hyperlipidemia, unspecified; I25.10 Atherosclerotic heart disease of native coronary artery without angina pectoris; I25.2 Old myocardial infarction; Z87.891 Personal history of nicotine dependence
CPT/HCPCS: 70498; 72125; 80053; 80061; 80307; 83036; 84439; 84443; 85025; 99285; Q0163; Q9967